=== PATIENT | male | born 1975 | race Caucasian/White ===

== ENCOUNTER 2017-03-01 19:41 | Outpatient (CLI) | payer OTHER ==
[~2017-03-01 19:41] MED LIST: DIPH25TA31 PO
== END 2017-03-02 06:15 | disposition home or self-care (01) ==
LOC: SLEEP 19:41
PROVIDERS: ATTEND Nurse Practitioner Family
DX: G47.09 Other insomnia (principal); F51.02 Adjustment insomnia; R06.83 Snoring; I10 Essential (primary) hypertension
CPT/HCPCS: 95810

== ENCOUNTER 2021-10-15 05:41 | Outpatient (CLI) | payer OTHER ==
[~2021-10-15] VITALS: Ht 180.3 cm; Wt 125.2 kg
[2021-10-15] MEDS ORDERED: CHOL4PAC16 PO (10:09)
[2021-10-15] MEDS ORDERED: ALPR1TAB2 PO (10:09)
[2021-10-15] MEDS ORDERED: ROSU10TA28 PO (10:09)
== END 2021-10-15 11:10 | disposition home or self-care (01) ==
LOC: PREOP 05:41
PROVIDERS: ATTEND Internal Medicine
DX: Z01.818 Encounter for other preprocedural examination (principal)

== ENCOUNTER 2021-10-19 07:46 | Day surgery (SDC) | payer OTHER ==
--- NOTE | 2021-10-12 15:24 | HISTORY AND PHYSICAL ---
DATE OF SERVICE: COLONOSCOPY HISTORY AND PHYSICAL DATE OF ADMISSION: 10/19/2021 HISTORY: The patient is a 46-year-old white male referred for screening colonoscopy, his first and is referred by Dr. Martins for his first screening colonoscopy. He seemed to be of average risk as he is not aware of any family history for colon cancer. He does report ever since having cholecystectomy complicated by gallstone related pancreatitis in 2011. He has had some urgency, especially after breakfast in the morning. He does use Questran. He denies bright red blood per rectum, melena, abdominal pain and has no nocturnal stools. PAST MEDICAL HISTORY: Significant for hyperlipidemia, for which he takes Rosuvastatin 10 mg daily. PAST SURGICAL HISTORY: He has had an appendectomy in 2012 as well as cholecystectomy in 2011. FAMILY HISTORY: Father and mother now are living in their late 60s. Father has hypertension. Mother has no known health problems. SOCIAL HISTORY: He is , works as a reach lift truck driver. Occasional social alcohol intake with no past smoking history. REVIEW OF SYSTEMS: CONSTITUTIONAL: Denies night sweats, chills, fever, change in weight. GASTROINTESTINAL: As noted in the HPI. PULMONARY: Denies cough, wheezing or shortness of breath. CARDIOVASCULAR: Denies orthopnea, PND, pedal edema or syncope. PHYSICAL EXAMINATION: GENERAL: Reveals a pleasant white male, appears to be in no acute distress. VITAL SIGNS: Weight 276 pounds, blood pressure 124/84. HEENT: Unremarkable. Sclerae nonicteric. ABDOMEN: Soft, supple without mass, organomegaly or tenderness. EXTREMITIES: Reveal no cyanosis, clubbing or edema. ASSESSMENT AND PLAN: Rationale for screening colonoscopy was discussed. The patient was given instructions with the Suprep kit and questions answered. I thank you for the referral of this pleasant gentleman. Job ID: [id number] DocumentID: [id number] Dictated Date: 10/01/2021 16:33:19 Irrigation Tax Assessor Collector Date: 10/01/2021 16:49:03 Dictated By: ROBIN ARANGO MD
[~2021-10-19] VITALS: Ht 180 cm; Wt 125.2 kg
[~2021-10-19 07:46] MED LIST changes: +ALPR1TAB2 PO; +CHOL4PAC16 PO; +ROSU10TA28 PO
[2021-10-19] MEDS ORDERED: LACTATED RINGERS 1,000 ML IV ONE (07:53)
[2021-10-19] MEDS ORDERED: LACTATED RINGERS 1,000 ML IV STA (07:54)
--- NOTE | 2021-10-19 07:58 | Pre-Op Note & Conscious Sedat ---
Pre-Operative Progress Note H&P Reviewed The H&P was reviewed, patient examined and no changes noted. Date H&P Reviewed: Oct 19, 2021 Time H&P Reviewed: 07:58 Conscious Sedation Pre-Proced ASA Score 2 For ASA 3 and 4: Consider anesthesia and medical clearance. Also, for patients with a history of failed moderate sedation consider anesthesia. Airway Lungs Heart ASA score ASA 1: a normal healthy patient ASA 2: a patient with a mild systemic disease (mid diabetes, controlled hypertension, obesity ASA 3: a patient with a severe systemic disease that limits activity (angina, COPD, prior Myocardial infarction) ASA 4: a patient with an incapacitating disease that is a constant threat to life (CHF, renal failure) ASA 5: a moribund patient not expected to survive 24 hrs. (ruptured aneurysm) ASA 6: a declared brain- patient whose organs are being harvested. For emergent operations, add the letter E after the classification Mallampati Classification Grade 1 Sedation Plan Analgesia, Amnesia, Plan communicated to team members, Discussed options with patient/fam, Discussed risks with patient/fam The patient is an appropriate candidate to undergo the planned procedure, sedation, and anesthesia. The patient immediately re-assessed prior to indication. ROBIN ARANGO MD Oct 19, 2021 07:58
[2021-10-19] MEDS ORDERED: LIDOCAINE JELLY 2% 6 ML SYRINGE MM PRN (08:00)
[2021-10-19 08:11] VITALS: BP 136/99
[2021-10-19] MEDS ORDERED: MIDAZOLAM 2 MG/2 ML (VERSED) VIAL ONE (08:26)
[2021-10-19] MEDS ORDERED: proPOfol 200 MG/20 ML (DIPRIVAN) VIAL IV ONE ×2 (08:26→08:36)
[2021-10-19 09:00] VITALS: BP 108/75
[2021-10-19 09:05] VITALS: BP 113/77
[2021-10-19 09:44] VITALS: BP 113/99
--- NOTE | 2021-10-19 10:43 | Anesthesia-General Post-Op ---
MAC Patient Condition Mental Status/LOC: Same as Preop Cardiovascular: Satisfactory Nausea/Vomiting: Absent Respiratory: Satisfactory Pain: Controlled Complications: Absent Post Op Complications Complications None Follow Up Care/Instructions Patient Instructions None needed. Anesthesiology Discharge Order Discharge Order Patient is doing well, no complaints, stable vital signs, no apparent adverse anesthesia problems. No complications reported per nursing. CARO NICHOLE CRNA Oct 19, 2021 10:43
--- NOTE | 2021-10-19 13:54 | OPERATIVE REPORT ---
DATE OF SERVICE: 10/19/2021 COLONOSCOPY SUMMARY INDICATION FOR THE PROCEDURE: Screening colonoscopy. DESCRIPTION PROCEDURE: The patient was placed in the left lateral decubitus position. Prior to undergoing colonoscopy, digital rectal evaluation was performed. Anal sphincter tone was normal and the perianal reflexes intact. Prostate was mildly enlarged, anodular on digital inspection. No other abnormalities were noted on digital inspection of anal canal or distal rectal vault. The colonoscope was inserted into the rectum and under direct visualization advanced to cecum. The cecum was identified by identification of ileocecal valve and cecal strap. Photographic documentation was obtained. Quality of prep was good. FINDINGS: There was no evidence for internal or external hemorrhoids and the rectum was unremarkable. Present in the mid sigmoid colon was a large pedunculated adenomatous appearing polyp with beefy red mucosa and several shallow areas of ulceration. It was photographed, then snared and removed in its entirety. It was on a thick stalk. There was approximately 5 mL of bleeding. An endoclip was deployed to the base of the stalk with no evidence for further blood loss during visualization. The remainder of the sigmoid colon, descending colon, splenic flexure, transverse colon, hepatic flexure, ascending colon, and cecum were unremarkable with no other areas of neoplasia. ASSESSMENT: A large adenomatous polyp with some shallow ulcerations involving its head was removed in its entirety via snare from the mid sigmoid colon, 30 cm from the dentate line. No other colonic abnormalities were appreciated. As long as there is no evidence for microscopic malignancy, we will advocate a 1-year surveillance interval and we will call the patient back at that time. The patient had mild BPH without evidence for nodularity on digital evaluation of the prostate. I thank you for the referral of this pleasant gentleman. Job ID: [id number] DocumentID: [id number] Dictated Date: 10/19/2021 09:00:29 Development Consultant Date: 10/19/2021 13:53:34 Dictated By: ROBIN AARNGO MD
== END 2021-10-19 09:55 | disposition home or self-care (01) ==
LOC: ENDO 07:46
PROVIDERS: ATTEND Internal Medicine
DX: Z12.11 Encounter for screening for malignant neoplasm of colon (principal); D12.5 Benign neoplasm of sigmoid colon; K63.89 Other specified diseases of intestine; N40.0 Benign prostatic hyperplasia without lower urinary tract symptoms; E78.5 Hyperlipidemia, unspecified; E66.9 Obesity, unspecified; Z68.38 Body mass index [BMI] 38.0-38.9, adult; Z90.49 Acquired absence of other specified parts of digestive tract
CPT/HCPCS: 88305